=== PATIENT | male | born 1965 | race African-American/Black ===

== ENCOUNTER 2016-11-29 15:23 | Emergency (ER) ==
[2016-11-29 15:46] VITALS: BP 156/104
[2016-11-29] MEDS ORDERED: DUONEB (A & A) INH ONE (16:07)
--- NOTE | 2016-11-29 16:07 | PROVIDER DOCUMENTATION ---
HPI-Respiratory General - General Chief Complaint: Asthma Attack Stated Complaint: ASTHMA/BP Time Seen by Provider: 11/29/16 16:03 Source: patient Allergies/Adverse Reactions: Patient Allergies Allergy/AdvReac Type Severity Reaction Status Date / Time milk Allergy Severe "MAKES ME Verified 11/29/16 16:26 WHEEZE" Home Medications: Home Medication List Medication Instructions Recorded Confirmed Last Taken Type Albuterol Sulfate Inhaler 2 puff INH Q6H PRN PRN #1 inhaler 11/08/16 11/29/16 07:00 Rx [Ventolin Hfa] Albuterol Sulfate Inhaler 2 puff INH Q6H PRN PRN #3 inhaler 11/29/16 Unknown Rx [Ventolin Hfa] Methylprednisolone [Medrol Dosepak] 4 mg PO DIRECTED #1 package 11/29/16 Unknown Rx - History of Present Illness-Resp Nature of Presenting Problem: Pt is a 51 y/o M c chief complaint of wheezing. Pt rode his bicycle to the ER. He states he feels like his asthma is acting up. Pt is frequently at the ER for wheezing. On arrival, pt is requesting shots, an albuterol inhaler, a coke and a sandwich. Pt has been known to sell the inhalers. He also states that he has been drinking beer today but has not been smoking crack or marijuana today. On arrival, pt is in no distress. Review of Systems - Adult - REVIEW OF SYSTEMS - ADULT Constitutional: reports: no symptoms reported. denies: chills, fatique Eyes: reports: no symptoms reported. denies: blurred vision, double vision Ears, Nose, Mouth & Throat: reports: no symptoms reported. denies: ear pain, nose pain, throat pain Cardiovascular: reports: no symptoms reported. denies: chest pain, orthopnea Respiratory: reports: wheezing. denies: cough, shortness of breath Gastrointestinal: reports: no symptoms reported. denies: abdominal pain, nausea Genitourinary: reports: no symptoms reported. denies: dysuria, hematuria Musculoskeletal: reports: no symptoms reported. denies: bone pain, joint pain, joint swelling Integumentary: reports: no symptoms reported. denies: itching, rash Neurological: reports: no symptoms reported. denies: numbness, paresthesia Psychiatric: reports: alcohol/drug dependence. denies: anxiety, emotional problems Endocrine: reports: no symptoms reported. denies: cold intolerance, heat intolerance Hematologic/Lymphatic: reports: no symptoms reported. denies: blood clots, low blood count Allergic/Immunologic: reports: no symptoms reported. denies: allergic reactions , food allergy All Other Systems: Reviewed and Negative Past History - Adult - PAST MEDICAL HISTORY-ADULT Review of Records: reports: Old Records Reviewed, Nursing Assessment Review, Medications Reviewed, Social history reviewed & non-contributory. Major Childhood Illnesses: reports: denies history Cardiovascular: reports: HTN Respiratory: reports: asthma, COPD Gastrointestinal: reports: GERD Obstetrical/Gynecological: reports: denies history Genitourinary: reports: denies history Musculoskeletal: reports: denies history Neurological: reports: denies history Endocrine/Immune: reports: denies history Other Conditions: reports: other (shingles) Additional History: Freq ER visits with medication noncompliance - PRIOR SURGERIES/PROCEDURES Surgical/Procedure History: reports: none - PRIOR HOSPITALIZATIONS Prior Hospitalizations: reports: none - IMMUNIZATION STATUS Childhood Immunizations: See Nurse Assessment Flu Vaccine: See Nurse Assessment - FAMILY HISTORY Family History: reviewed, not pertinent - SOCIAL HISTORY Smoking: cigarettes Provider spent 3-5 mins advising pt. on dangers of tobacco.: Discussed manners to quit use, and f/u contacts for add'l counseling. Substance Use: marijuana, opiates, cocaine Alcohol Use Frequency: every day Number of drinks per typical drinking period:: 5-10 drinks Living Situation: family Physical Exam-General - PHYSICAL EXAM-ADULT Initial Vital Signs Reviewed: Yes - CONSTITUTIONAL General Appearance: appears well, alert, no apparent distress - EYES Eyes: PERRL/EOMI, pink conjunctivae - HEAD, EARS, NOSE, MOUTH & THROAT HENMT: normocephalic/atraumatic, moist mucous membranes, normal ENT inspection - NECK Neck: non-tender - RESPIRATORY Respiratory: chest non-tender, wheezing - CARDIOVASCULAR Cardiovascular: normal peripheral pulses, regular rate, rhythm - GASTROINTESTINAL (ABDOMEN) Abdominal Exam: normal bowel sounds, non tender, soft - LYMPHATIC Lymphatic: no adenopathy - MUSCULOSKELETAL Back Exam: normal inspection, no CVA tenderness, no vertebral tenderness Extremity: normal range of motion, non-tender, normal gait - SKIN Integumentary: normal color, normal turgor, warm/dry - NEUROLOGIC Neurologic: grossly normal, no motor/sensory deficits - PSYCHIATRIC Psych/Mental Status: normal mood/affect, normal thought content, normal thought process, oriented x 3 Progress - PLAN OF CARE/RESULTS Progress/Plan/Lab Results: Orders Category Date Time Status Albuterol 2.5MG/Ipratrop 0.5MG [Duoneb (A & A)] Med 11/29/16 16:07 Discontinued 6 ml INH NOW ONE Dexamethasone [Decadron] Med 11/29/16 16:55 Discontinued 4 mg PO NOW ONE Aerosol Treatments Routine Oth 11/29/16 16:07 Completed Aerosol Treatments Stat Oth 11/29/16 16:07 Completed Vital Signs - 24 hr 11/29/16 11/29/16 15:44 16:23 Temperature 98.0 F Pulse Rate 97 H 105 H Respiratory 16 20 Rate Blood Pressure 156/104 O2 Sat by Pulse 100 99 Oximetry Departure - Departure Time of Disposition Order: 16:53 DIAGNOSIS: Asthma exacerbation Disposition: HOME 01 Certified Medical Emergency: Emergent Condition: Stable Additional Instructions: ED Follow Up Instructions: You have been treated by a care provider in the Emergency Department. These instructions are being provided to you so you can have an understanding of how to care for yourself upon discharge. Upon discharge from the Emergency Department, you are responsible for making arrangements for follow-up care by a physician of your choice. Take all prescribed medications as directed. Return to the Emergency Department immediately for any new or worsening symptoms. You may call the Physician Referral phone number at [phone] to obtain a list of Physicians who are taking new patients. Prescriptions: Methylprednisolone [Medrol Dosepak] 4 mg PO DIRECTED #1 package Albuterol Sulfate Inhaler [Ventolin Hfa] 2 puff INH Q6H PRN PRN #3 inhaler PRN Reason: Wheezing Referrals: None,PCP [Primary Care Provider] - Instructions: Asthma, Adult, [id number] Attestation - Physician/ PHYLLIS Attestation Patient care was provided by Advanced Practice Provider:: Yes Advanced Practice Provider:: Diego aYng Advanced Practice Provider documentation review:: The Mid-level provider documentation, treatment plan and medical decision making was reviewed by the physician who agrees with all treatment and medical decision making by the MLP.
[2016-11-29] MEDS ORDERED: DECADRON PO ONE (16:55)
== END 2016-11-29 17:18 | disposition home or self-care (01) ==
LOC: ED 15:23
DX: J45.901 Unspecified asthma with (acute) exacerbation (principal); R06.2 Wheezing; I10 Essential (primary) hypertension; J44.9 Chronic obstructive pulmonary disease, unspecified; F17.210 Nicotine dependence, cigarettes, uncomplicated; Z71.6 Tobacco abuse counseling
CPT/HCPCS: 94640; J8540

== ENCOUNTER 2016-12-10 18:00 | Emergency (ER) ==
[2016-12-10] MEDS ORDERED: DUONEB (A & A) INH ONE (18:34)
[2016-12-10] MEDS ORDERED: SOLU-MEDROL IV ONE (18:47)
[2016-12-10] MEDS ORDERED: VENTOLIN HFA INH ONE (18:48)
--- NOTE | 2016-12-10 18:50 | PROVIDER DOCUMENTATION ---
HPI-Respiratory General - General Source: patient - History of Present Illness-Resp Quality of Pain: reports: none Severity in ED: reports: mild Onset/Duration: reports: other (chronic) Timing: reports: still present Current Respiratory Medication Therapy: Initiated see nurses note Associated Symptoms: reports: wheezing Similar Symptoms Previously?: Yes Recently seen or treated by another doctor?: Yes <Katelynn Betancourt - Last Filed: 12/10/16 18:51> <Ernie Wright - Last Filed: 12/10/16 19:03> - General Chief Complaint: Chest Pain Stated Complaint: GENERAL Time Seen by Provider: 12/10/16 18:14 Allergies/Adverse Reactions: Patient Allergies Allergy/AdvReac Type Severity Reaction Status Date / Time milk Allergy Severe "MAKES ME Verified 12/10/16 18:41 WHEEZE" Home Medications: Home Medication List Medication Instructions Recorded Confirmed Last Taken Type Albuterol Sulfate Inhaler 2 puff INH Q6H PRN PRN #3 inhaler 11/29/16 12/10/16 Unknown Rx [Ventolin Hfa] - History of Present Illness-Resp Nature of Presenting Problem: 51 year old M presents to the ED with a cc of being "tight". PT states that he is out of his inhaler. (Katelynn Betancourt) Review of Systems - Adult - REVIEW OF SYSTEMS - ADULT Constitutional: denies: chills, fever Cardiovascular: denies: chest pain, palpitations Respiratory: reports: wheezing. denies: cough, shortness of breath Gastrointestinal: denies: abdominal pain, nausea, vomiting <Katelynn Betancourt - Last Filed: 12/10/16 18:51> Past History - Adult - PAST MEDICAL HISTORY-ADULT Review of Records: reports: Nursing Assessment Review, Medications Reviewed Major Childhood Illnesses: reports: denies history Cardiovascular: reports: HTN Respiratory: reports: asthma, COPD Gastrointestinal: reports: GERD Obstetrical/Gynecological: reports: denies history Genitourinary: reports: denies history Musculoskeletal: reports: denies history Neurological: reports: denies history Endocrine/Immune: reports: denies history Other Conditions: reports: other (shingles) Additional History: Freq ER visits with medication noncompliance - PRIOR SURGERIES/PROCEDURES Surgical/Procedure History: reports: none - PRIOR HOSPITALIZATIONS Prior Hospitalizations: reports: none - IMMUNIZATION STATUS Childhood Immunizations: See Nurse Assessment Flu Vaccine: See Nurse Assessment - FAMILY HISTORY Family History: reviewed, not pertinent - SOCIAL HISTORY Smoking: cigarettes Provider spent 3-5 mins advising pt. on dangers of tobacco.: Discussed manners to quit use, and f/u contacts for add'l counseling. Substance Use: none/never Alcohol Use Frequency: every day <Katelynn Betancourt - Last Filed: 12/10/16 18:51> Physical Exam-General - PHYSICAL EXAM-ADULT Initial Vital Signs Reviewed: Yes - CONSTITUTIONAL General Appearance: appears well, alert, no apparent distress - RESPIRATORY Respiratory: chest non-tender, wheezing - CARDIOVASCULAR Cardiovascular: normal peripheral pulses, regular rate, rhythm, no edema - GASTROINTESTINAL (ABDOMEN) Abdominal Exam: non tender, soft - SKIN Integumentary: normal color, normal turgor, warm/dry - PSYCHIATRIC Psych/Mental Status: normal mood/affect, normal thought content, normal thought process, oriented x 3 <Katelynn Betancourt - Last Filed: 12/10/16 18:51> Progress <Katelynn Betancourt - Last Filed: 12/10/16 18:51> <Ernie Wright - Last Filed: 12/10/16 19:03> - PLAN OF CARE/RESULTS Progress/Plan/Lab Results: Orders Category Date Time Status Albuterol 2.5MG/Ipratrop 0.5MG [Duoneb (A & A)] Med 12/10/16 18:34 Discontinued 3 ml INH NOW ONE Albuterol Sulfate Inhaler [Ventolin Hfa] Med 12/10/16 18:48 Discontinued 1 puff INH NOW ONE Methylprednisolone Sod Succ [Solu-Medrol] Med 12/10/16 18:52 Discontinued 60 mg IM NOW ONE Aerosol Treatments Routine Oth 12/10/16 18:34 Active Aerosol Treatments Stat Oth 12/10/16 18:34 Active MDI Treatments Stat Oth 12/10/16 18:48 Active EKG [EKG] Stat Ther 12/10/16 18:34 Ordered Vital Signs Temp Pulse Resp BP Pulse Ox 12/10/16 18:09 98.2 F 94 H 20 135/99 98 milk Allergy (Severe, Verified 12/10/16 18:41) "MAKES ME WHEEZE" Albuterol Sulfate Inhaler [Ventolin Hfa] 2 puff INH Q6H PRN PRN #3 inhaler 11/29 (Ernie Wright) Departure <Katelynn Betancourt - Last Filed: 12/10/16 18:51> - Departure Time of Disposition Order: 19:02 Certified Medical Emergency: Urgent <Ernie Wright - Last Filed: 12/10/16 19:03> - Departure DIAGNOSIS: Asthma exacerbation Disposition: HOME 01 Condition: Good Additional Instructions: Follow up with your primary care provider. ED Follow Up Instructions: You have been treated by a care provider in the Emergency Department. These instructions are being provided to you so you can have an understanding of how to care for yourself upon discharge. Upon discharge from the Emergency Department, you are responsible for making arrangements for follow-up care by a physician of your choice. Take all prescribed medications as directed. Return to the Emergency Department immediately for any new or worsening symptoms. You may call the Physician Referral phone number at [phone] to obtain a list of Physicians who are taking new patients. Attestation - Scribe Verification/Attestation Scribe:: Katelynn Betancourt Acting as Scribe for:: Ernie Wright Scribe documention review:: This chart was documented by a scribe and accurately reflects the service the provider performed and the decisions made by the provider. <Katelynn Betancourt - Last Filed: 12/10/16 18:51> - Physician/ PHYLLIS Attestation Patient care was provided by Advanced Practice Provider:: Yes Advanced Practice Provider:: Ernie Wright Advanced Practice Provider documentation review:: The Mid-level provider documentation, treatment plan and medical decision making was reviewed by the physician who agrees with all treatment and medical decision making by the MLP. <Ernie Wright - Last Filed: 12/10/16 19:03> Physician Attestation
[2016-12-10] MEDS ORDERED: SOLU-MEDROL IM ONE (18:52)
[2016-12-10 19:45] VITALS: BP 135/85
== END 2016-12-10 19:45 | disposition home or self-care (01) ==
LOC: ED 18:00
DX: J45.901 Unspecified asthma with (acute) exacerbation (principal); R07.89 Other chest pain; R06.02 Shortness of breath; I10 Essential (primary) hypertension; J44.9 Chronic obstructive pulmonary disease, unspecified; F17.210 Nicotine dependence, cigarettes, uncomplicated; Z71.6 Tobacco abuse counseling
CPT/HCPCS: 93005; J2930